=== PATIENT | female | born 1990 | race African-American/Black ===

== ENCOUNTER 2024-11-01 13:55 | Emergency (ER) | payer OTHER ==
[~2024-11-01] VITALS: Ht 157.5 cm; Wt 75.2 kg
[2024-11-01 14:56] VITALS: BP 144/102; PULSE 77; RESP 18; TEMP 97.9; O2SAT 100
[2024-11-01] MEDS: KETOROLAC TROMETH 30 MG/ML 1ML VIAL IM ONE (15:31)
[2024-11-01] MEDS ORDERED: IBUP-1454 PO (16:21)
[2024-11-01] MEDS ORDERED: CEPH500C PO (16:21)
--- NOTE | 2024-11-01 16:22 | ED.PDOC ---
History of Present Illness(SKN HPI Comments 34-year-old with a MHx presents for a possible insect bite to the left cervical region. Onset occurred two days ago while patient was asleep. Reports she has teenager best friend's house and out along the when she was waking from asleep after she felt a pinch to the left side of her neck. Pain mildly radiates to the left upper arm and worsens to touch. No red flags. No chest pain or shortness of breath. Denies any fevers chills nausea vomiting diarrhea Chief Complaint: Wound Check Time Seen by MD: 14:50 History of Present Illness: Nurses Notes, Medications, Allergies Allergies: Coded Allergies: NO KNOWN ALLERGIES (Unverified , 11/01/24) Information Source: Patient Mode of Arrival: Ambulatory Past Medical History PAST MEDICAL HISTORY: Denies Surgical History: Denies all surgeries MEDICAL BILLING COORDINATOR History: Denies all MEDICAL BILLING COORDINATOR Hx Family History Family History: Reviewed,noncontributory to illness Social History Smoker: Non-Smoker Alcohol: Denies ETOH Use Drugs: Denies Drug Use All Other Systems: Reviewed and Negative (Per HPI) Physical Exam General Appearance: No Apparent Distress, Normal HEENT: Normal ENT Inspection, Pharynx Normal, TMs Normal Neck: Full Range of Motion, Non-Tender, Normal, Normal Inspection Respiratory: Chest Non-Tender, Lungs Clear, No Accessory Muscle Use, No Respiratory Distress, Normal Breath Sounds Cardiovascular: No Edema, No JVD, No Murmur, No Gallop, Normal Peripheral Pulses, Regular Rate/Rhythm Breast Exam: Deferred Gastrointestinal: No Organomegaly, Non Tender, No Pulsatile Mass, Normal Bowel Sounds, Soft Genitalia: Deferred Pelvic: Deferred Rectal: Deferred Extremities: No calf tenderness, Normal capillary refill, Normal inspection, Normal range of motion, Non-tender, No pedal edema Musculoskeletal : Apperance: Normal Neurologic: Alert, qa lead II-XII nml as Tested, No Motor Deficits, Normal Affect, Normal Mood, No Sensory Deficits Cerebellar Function: Normal Reflexes: Normal Skin: Dry, Normal Color, Warm Lymphatic: No Adenopathy Was a procedure done? Was a procedure done?: No Images 1 - 1x1 round papule with mild surrounding erythema Differential Diagnosis (INTG) Differential Diagnosis: Hematoma, Insect Envenomation, Puncture Wound X-Ray, Labs, Meds, VS Vital Signs Date Time Temp Pulse Resp B/P (MAP) Pulse Ox O2 Delivery O2 Flow Rate FiO2 11/01/24 14:56 77 18 100 Room Air 11/01/24 14:56 97.9 77 18 144/102 (116) 100 97.9 11/01/24 14:28 97.9 77 18 144/102 (116) 100 97.9 Current Medications Medications (Trade) Dose Ordered Sig/Judy Route Start Time Stop Time Status Last Admin Ketorolac Tromethamine (Toradol Injection) 30 mg ONCE ONCE IM 11/01/24 15:30 11/01/24 15:31 DC 11/01/24 15:31 X-Ray, Labs, Meds, VS Comment Patient likely with local inflammatory response from possible insect bite/sting. No evidence of systemic reaction such as shortness of breath, diffuse rash, drooling, facial/lip swelling. Patient given Toradol and observed in the ER. Doubtful for cellulitis given no fever, minimal erythema, minimal warmth. However, will give hand-written prescription for keflex in case symptoms worsen. Patient remains with minimal symptoms. Remains hemodynamically stable. Thought safe for discharge home. Tylenol and/or motrin at home for pain. Benadryl for itchiness. Hydrocortisone for itchiness. Ice/cold compress for comfort. Follow-up with primary care doctor in 2-3 days. Return to ER as needed. Time of 1ST Reevaluation: 16:19 Reevaluation 1ST: Improved Patient Education/Counseling: Diagnosis, Treatment Family Education/Counseling: Diagnosis, Treatment Departure 1 Departure Time of Disposition: 16:20 Impression: Primary Impression: Insect bite Qualified Codes: S40.862A - Insect bite (nonvenomous) of left upper arm, initial encounter; W57.XXXA - Bitten or stung by nonvenomous insect and other nonvenomous arthropods, initial encounter Disposition: HOME / SELF CARE / HOMELESS Condition: Fair e-Prescriptions Ibuprofen (Ibuprofen) 600 Mg Tab 1 TAB PO TID for 10 Days, #30 TAB 0 Refills Prov: BRITTANI ESTRADA PROFESSOR OF VOICE 11/01/24 Cephalexin Monohydrate (Cephalexin) 500 Mg Cap 1 CAP PO QID for 7 Days, #28 CAP 0 Refills Prov: BRITTANI ESTRADA PROFESSOR [employer] 11/01/24 Critical Care Note Critical Care Time?: No Stability Stability form required: No Heart Score Heart Score: Heart Score Response (Comments) Value History N/A 0 EKG N/A 0 Age N/A 0 Risk Factors N/A 0 Troponin N/A 0 Total 0 BRITTANI ESTRADA PROFESSOR [employer] VO[employer] Nov 01, 2024 16:22
== END 2024-11-01 16:25 | disposition home or self-care (01) ==
LOC: ER 13:55
DX: S10.96XA Insect bite of unspecified part of neck, initial encounter (principal); W57.XXXA Bitten or stung by nonvenomous insect and other nonvenomous arthropods, initial encounter; Y93.89 Activity, other specified; Y92.89 Other specified places as the place of occurrence of the external cause; Y99.8 Other external cause status
CPT/HCPCS: 96372; 99283; J1885